=== PATIENT | female | born 1950 | race Caucasian/White ===

== ENCOUNTER 2018-07-31 13:53 | Inpatient (IN) | payer OTHER ==
--- NOTE | 2018-07-31 14:36 | ER ---
Nurse's Notes [facility] Name: Joanne Shields Age: 67 yrs Sex: Female : 1950 Arrival Date: 07/31/2018 Time: 13:58 Bed 5 Private MD: Corrina Robles R Diagnosis: Dyspnea;Unspecified combined systolic (congestive) and diastolic (congestive) heart failure;Essential (primary) hypertension;Edema, unspecified Presentation: 07/31 13:57 Presenting complaint: Patient states: i came from my documentation liaison and he sent me here hj in the ER: a couple of weeks ago, i started having this swollen legs and today i started having this SOB; reports chest pain, like somebody squeezing it;. Transition of care: patient was not received from another setting of care. Onset of symptoms was July 31, 2018. Risk Assessment: Do you want to hurt yourself or someone else? Patient reports no desire to harm self or others. Initial Sepsis Screen: Does the patient meet any 2 criteria? No. Patient's initial sepsis screen is negative. Does the patient have a suspected source of infection? No. Patient's initial sepsis screen is negative. Care prior to arrival: None. 13:57 Method Of Arrival: Ambulatory 13:57 Acuity: RAJNI 3 hj Historical: - Allergies: 14:00 tramadol; hj - Home Meds: 14:17 metoprolol tartrate 100 mg Oral tab 1 tab 2 times per day [Active]; diltiazem HCl 120 la1 mg Oral cp12 1 cap 2 times per day [Active]; Myrbetriq 25 mg oral Tb24 1 tab once daily [Active]; clonidine HCl 0.2 mg Oral tab 1 tab once daily [Active]; quinapril 40 mg Oral tab 1 tab 2 times per day [Active]; - PMHx: 14:00 CHF; Hypertension; hj - PSHx: 14:00 abdominal; Cholecystectomy; Hysterectomy; Hernia repair; hj - Immunization history:: Adult Immunizations up to date. - Social history:: Smoking status: Patient/guardian denies using tobacco. - Ebola Screening: : No symptoms or risks identified at this time. Screenin:39 Abuse screen: Denies threats or abuse. Nutritional screening: No deficits noted. la1 Tuberculosis screening: No symptoms or risk factors identified. Fall Risk None identified. Assessment: 14:38 General: Appears in no apparent distress. Behavior is calm, cooperative. Pain: Denies la1 pain. Neuro: Level of Consciousness is awake, alert, obeys commands, Oriented to person, place, time, situation. Cardiovascular: Heart tones S1 S2 present Capillary refill < 3 seconds Patient's skin is warm and dry. Edema pitting to left ankle, left foot, right ankle and right foot Rhythm is sinus rhythm. Respiratory: Airway is patent Respiratory effort is even, unlabored, Respiratory pattern is regular, symmetrical, Breath sounds are coarse bilaterally. GI: Abdomen is non-distended, obese. : No signs and/or symptoms were reported regarding the genitourinary system. 15:07 Reassessment: Patient appears in no apparent distress at this time. No changes from la1 previously documented assessment. Patient and/or family updated on plan of care and expected duration. Pain level reassessed. Patient is alert, oriented x 3, equal unlabored respirations, skin warm/dry/pink. Vital Signs: 14:00 BP 180 / 102; Pulse 50; Resp 20; Temp 98.8(O); Pulse Ox 95% on R/A; Weight 96.62 kg; hj Height 5 ft. 4 in. (162.56 cm); Pain 3/10; 15:08 BP 188 / 88; Pulse 46; Resp 16; Pulse Ox 93% on R/A; la1 14:00 Body Mass Index 36.56 (96.62 kg, 162.56 cm) ED Course: 13:58 Patient arrived in ED. mr 13:59 Corrina Robles MD is Private Physician. mr 13:59 Triage completed. hj 14:00 Arm band placed on right wrist. hj 14:08 Jay Lim RN is Primary Nurse. la1 14:14 Cuco Armenta MD is Attending Physician. manuel 14:34 Merced Ward MD is Hospitalizing Provider. manuel 14:39 Call light in reach. Side rails up X 1. alarm security or surveillance monitor on. Pulse ox on. NIBP on. la1 14:39 No provider procedures requiring assistance completed. Inserted saline lock: 22 gauge la1 in right antecubital area, using aseptic technique. Blood collected. 14:40 X-ray completed. Portable x-ray completed in exam room. Patient tolerated procedure jb2 well. 14:40 EKG done, by hydro plant technician. reviewed by Cuco Armenta MD. 3 14:43 XRAY Chest (1 view) In Process Unspecified. EDMI 15:29 Urine Culture Sent. 16:17 Patient admitted, IV remains in place. la1 Administered Medications: 15:21 Drug: Lasix 20 mg Route: IVP; Site: right antecubital; la1 16:17 Follow up: Response: incrased urine output, voided x 3 la1 Outcome: 14:35 Decision to Hospitalize by Provider. manuel 16:16 Admitted to Tele accompanied by tech, via wheelchair, room 411. la1 16:16 Condition: stable 16:16 Instructed on the need for admit. 16:17 Patient left the ED. la1 Signatures: Dispatcher [employer] EDMS Cuco Armenta MD MD cha Rivera, Alie Jamee Rushe jb2 Beryl Owens RN RN ss Attema, Lee, RN RN la1 Lyle Alvarez, Abena Moses RN sm3 Corrections: (The following items were deleted from the chart) 14:05 14:00 Pulse 50bpm; Resp 20bpm; Pulse Ox 95% RA; Temp 98.8F Oral; 96.62 kg; Height 5 ft. hj 4 in.; BMI: 36.5; Pain 3/10; hj 14:07 14:00 Pulse 50bpm; Resp 20bpm; Pulse Ox 95% RA; Temp 98.8F Oral; 96.62 kg; Height 5 ft. hj 4 in.; BMI: 36.5; Pain 3/10; hj 14:42 13:57 Presenting complaint: Patient states: i came from documentation liaison and he sent me hj here in the ER: a couple of weeks ago, i started having this swollen legs and today i started having this SOB; reports chest pain, like somebody squeezing it; hj
--- NOTE | 2018-07-31 14:36 | EDPHYS ---
Physician Documentation [facility] Name: Joanne Shields Age: 67 yrs Sex: Female : 1950 Arrival Date: 07/31/2018 Time: 13:58 Bed 5 Private MD: Corrina Robles R ED Physician Cuco Armenta HPI: 07/31 14:22 This 67 yrs old Female presents to ER via Ambulatory with complaints of manuel Breathing Difficulty. 14:22 The patient has shortness of breath at rest, with light activity. Onset: The manuel symptoms/episode began/occurred this morning, yesterday. Duration: The symptoms are continuous, and are steadily getting worse. The patient's shortness of breath is aggravated by supine position, walking. Associated signs and symptoms: Pertinent positives: non-productive cough. Severity of symptoms: At their worst the symptoms were. The patient has not experienced similar symptoms in the past. Historical: - Allergies: 14:00 tramadol; hj - Home Meds: 14:17 metoprolol tartrate 100 mg Oral tab 1 tab 2 times per day [Active]; diltiazem HCl 120 la1 mg Oral cp12 1 cap 2 times per day [Active]; Myrbetriq 25 mg oral Tb24 1 tab once daily [Active]; clonidine HCl 0.2 mg Oral tab 1 tab once daily [Active]; quinapril 40 mg Oral tab 1 tab 2 times per day [Active]; - PMHx: 14:00 CHF; Hypertension; hj - PSHx: 14:00 abdominal; Cholecystectomy; Hysterectomy; Hernia repair; hj - Immunization history:: Adult Immunizations up to date. - Social history:: Smoking status: Patient/guardian denies using tobacco. - Ebola Screening: : No symptoms or risks identified at this time. ROS: 14:27 Constitutional: Negative for fever, chills, and weight loss, Eyes: Negative for injury, manuel pain, redness, and discharge, ENT: Negative for injury, pain, and discharge, Neck: Negative for injury, pain, and swelling, Cardiovascular: Negative for chest pain, palpitations, and edema, Abdomen/GI: Negative for abdominal pain, nausea, vomiting, diarrhea, and constipation, Back: Negative for injury and pain, : Negative for injury, bleeding, discharge, and swelling, MS/Extremity: Negative for injury and deformity, Skin: Negative for injury, rash, and discoloration, Neuro: Negative for headache, weakness, numbness, tingling, and seizure, Psych: Negative for depression, anxiety, suicide ideation, homicidal ideation, and hallucinations, Allergy/Immunology: Negative for hives, rash, and allergies, Endocrine: Negative for neck swelling, polydipsia, polyuria, polyphagia, and marked weight changes, Hematologic/Lymphatic: Negative for swollen nodes, abnormal bleeding, and unusual bruising. 14:27 Respiratory: Positive for cough, shortness of breath, at rest. 14:27 MS/extremity: Positive for swelling, of the right leg and left leg. Exam: 14:27 Constitutional: This is a well developed, well nourished patient who is awake, alert, manuel and in no acute distress. Head/Face: Normocephalic, atraumatic. Eyes: Pupils equal round and reactive to light, extra-ocular motions intact. Lids and lashes normal. Conjunctiva and sclera are non-icteric and not injected. Cornea within normal limits. Periorbital areas with no swelling, redness, or edema. ENT: Nares patent. No nasal discharge, no septal abnormalities noted. Tympanic membranes are normal and external auditory canals are clear. Oropharynx with no redness, swelling, or masses, exudates, or evidence of obstruction, uvula midline. Mucous membranes moist. Neck: Trachea midline, no thyromegaly or masses palpated, and no cervical lymphadenopathy. Supple, full range of motion without nuchal rigidity, or vertebral point tenderness. No Meningismus. Chest/axilla: Normal chest wall appearance and motion. Nontender with no deformity. No lesions are appreciated. Cardiovascular: Regular rate and rhythm with a normal S1 and S2. No gallops, murmurs, or rubs. Normal PMI, no JVD. No pulse deficits. Respiratory: Lungs have equal breath sounds bilaterally, clear to auscultation and percussion. No rales, rhonchi or wheezes noted. No increased work of breathing, no retractions or nasal flaring. Abdomen/GI: Soft, non-tender, with normal bowel sounds. No distension or tympany. No guarding or rebound. No evidence of tenderness throughout. Back: No spinal tenderness. No costovertebral tenderness. Full range of motion. Skin: Warm, dry with normal turgor. Normal color with no rashes, no lesions, and no evidence of cellulitis. Neuro: Awake and alert, GCS 15, oriented to person, place, time, and situation. Cranial nerves II-XII grossly intact. Motor strength 5/5 in all extremities. Sensory grossly intact. Cerebellar exam normal. Normal gait. Psych: Awake, alert, with orientation to person, place and time. Behavior, mood, and affect are within normal limits. 14:27 Cardiovascular: Rate: normal, Rhythm: regular, Pulses: Pulses are 4+ in bilateral radial, brachial, femoral, popliteal, posterior tibial and and dorsalis pedis arteries.. Heart sounds: murmur, systolic, grade 2 over 6, rub, not appreciated, gallop, not appreciated, S1, normal, S2, normal, JVD: is noted bilaterally, to 1 cm. Vital Signs: 14:00 BP 180 / 102; Pulse 50; Resp 20; Temp 98.8(O); Pulse Ox 95% on R/A; Weight 96.62 kg; hj Height 5 ft. 4 in. (162.56 cm); Pain 3/10; 15:08 BP 188 / 88; Pulse 46; Resp 16; Pulse Ox 93% on R/A; la1 14:00 Body Mass Index 36.56 (96.62 kg, 162.56 cm) MDM: 14:17 Patient medically screened. [facility] 14:29 Data reviewed: vital signs, nurses notes, lab test result(s), EKG, radiologic studies, [facility] plain films. 07/31 14:22 Order name: Basic Metabolic Panel; Complete Time: 15:26 [facility] 07/31 14:22 Order name: CBC with Diff; Complete Time: 15:26 [facility] 07/31 14:22 Order name: LFT's; Complete Time: 15:26 [facility] 07/31 14:22 Order name: Magnesium; Complete Time: 15:26 [facility] 07/31 14:22 Order name: NT PRO-BNP; Complete Time: 15:26 [facility] 07/31 14:22 Order name: PT-INR; Complete Time: 15:26 [facility] 07/31 14:22 Order name: Troponin (emerg Dept Use Only); Complete Time: 15:26 [facility] 07/31 14:22 Order name: XRAY Chest (1 view); Complete Time: 15:26 [facility] 07/31 14:22 Order name: Echo w/ Doppler [facility] 07/31 14:22 Order name: Urine Culture [facility] 07/31 14:22 Order name: Lipase; Complete Time: 16:10 [facility] 07/31 15:48 Order name: Urine Dipstick--Ancillary (enter results) 07/31 16:10 Order name: US Extremity Venous W Compression Shine [facility] 07/31 14:22 Order name: EKG; Complete Time: 14:26 [facility] 07/31 14:22 Order name: Cardiac monitoring; Complete Time: 14:52 [facility] 07/31 14:22 Order name: EKG - Nurse/Tech; Complete Time: 14:33 [facility] 07/31 14:22 Order name: IV Saline Lock; Complete Time: 14:33 [facility] 07/31 14:22 Order name: Labs collected and sent; Complete Time: 14:33 [facility] 07/31 14:22 Order name: O2 Per Protocol; Complete Time: 14:33 [facility] 07/31 14:22 Order name: O2 Sat Monitoring; Complete Time: 14:33 [facility] 07/31 14:22 Order name: Urine Dipstick-Ancillary (obtain specimen); Complete Time: 15:29 [facility] 07/31 14:47 Order name: CONS Physician Consult EDMS Administered Medications: 15:21 Drug: Lasix 20 mg Route: IVP; Site: right antecubital; la1 16:17 Follow up: Response: incrased urine output, voided x 3 la1 Disposition: 07/31/18 14:35 Hospitalization ordered by Merced Ward for Inpatient Admission. Preliminary diagnosis are Dyspnea, Unspecified combined systolic (congestive) and diastolic (congestive) heart failure, Essential (primary) hypertension, Edema, unspecified. - Bed requested for Telemetry/MedSurg (Inpatient). - Status is Inpatient Admission. la1 - Condition is Fair. - Problem is new. - Symptoms have improved. UTI on Admission? No Signatures: Dispatcher [employer] EDMS Apurva Zuniga RN RN dw Anderson, Corey, MD MD cha Attema, Lee RN RN la1 Lyle Alvarez RN RN Corrections: (The following items were deleted from the chart) 15:00 14:35 Hospitalization Ordered by Merced Ward MD for Inpatient Admission. Preliminary amauri diagnosis is Dyspnea; Unspecified combined systolic (congestive) and diastolic (congestive) heart failure; Essential (primary) hypertension; Edema, unspecified. Bed requested for Telemetry/MedSurg (Inpatient). Status is Inpatient Admission. Condition is Fair. Problem is new. Symptoms have improved. UTI on Admission? No. manuel 16:17 15:00 07/31/2018 14:35 Hospitalization Ordered by Merced Ward MD for Inpatient la1 Admission. Preliminary diagnosis is Dyspnea; Unspecified combined systolic (congestive) and diastolic (congestive) heart failure; Essential (primary) hypertension; Edema, unspecified. Bed requested for Telemetry/MedSurg (Inpatient). Status is Inpatient Admission. Condition is Fair. Problem is new. Symptoms have improved. UTI on Admission? No. dw
[2018-07-31] MEDS ORDERED: FUROSEMIDE 20 MG/ 2ML VIAL ONE (14:52)
[2018-07-31 14:58] LABS: Absolute Lymphocytes (CBC) 1.2 K/uL (0.7-4.9); Basophils % 0.5 % (0-1.3); Eosinophils % 4.8 % (0-4.4); Hematocrit 44.9 % (36.0-45.0); Lymphocytes % 22.8 % (15.3-44.8); MPV 8.9 fL (7.6-11.3); Monocytes % 16.8 % (3.3-12.3); RBC Red Blood Cell Count 5.05 M/uL (3.86-4.86)
[2018-07-31 15:01] LABS: Protime INR 1.06
--- NOTE | 2018-07-31 15:02 | RAD REPORT ---
EXAM DESCRIPTION: RAD - Chest Single View - 07/31/2018 2:46 pm CLINICAL HISTORY: Chest pain, shortness of breath COMPARISON: April 2012 TECHNIQUE: AP portable chest image was obtained [id number] . FINDINGS: Or is baseline fibrotic lung pattern is present. Interstitial pattern is not substantially different from comparison. No acute infiltrate, mass or failure finding. A few small calcified granu aj are seen. Heart size is upper normal but not substantially different. No acute vascular engorgement. No measur able pleural effusion and no pneumothorax. No acute bone finding. Prominent bilateral shoulder joint degenerative changes are present progressive from 2013. No acute aortic findings suspected. IMPRESSION: No acute cardiopulmonary process. Heart size is upper normal without acute failure or volume overload suspected. Significant bilateral shoulder joint degenerative change progressive from comparison.
[2018-07-31 15:14] LABS: ALT/SGPT 20 U/L (12-78); AST/SGOT 18 U/L (15-37); Albumin 3.5 g/dL (3.4-5.0); Alkaline Phosphatase 103 U/L (45-117); BUN Blood Urea Nitrogen 11 mg/dL (7-18); Bicarbonate 30 mmol/L (21-32); Bilirubin Direct < 0.1 mg/dL (0-0.2); Bilirubin Total 0.4 mg/dL (0.2-1.0); Glucose Level 99 mg/dL (74-106); Magnesium 1.9 mg/dL (1.8-2.4); NT PRO-BNP 2545 pg/mL (<125); Potassium 3.7 mmol/L (3.5-5.1); Protein, Total 7.4 g/dL (6.4-8.2); Sodium Level 142 mmol/L (136-145); Troponin (Emerg Dept Use Only) < 0.02 ng/mL (0.0-0.045)
[2018-07-31 16:18] LABS: Urine Blood TRACE (NEG); Urine Glucose NEGATIVE (NEG); Urine Protein 2+ (NEG); Urine pH 8.5 (5.0-7.0)
--- NOTE | 2018-07-31 16:28 | EKG ---
Test Date: 2018-07-31 Test Time: 14:34:46 Floors Buffer: [id number] MEASUREMENT RESULTS: Intervals: Rate: 47 UT: 226 QRSD: 84 QT: 514 QTc: 454 [place]: P: 62 UT: 226 QRS: 25 T: 81 INTERPRETIVE STATEMENTS: Marked sinus bradycardia with sinus arrhythmia with 1st degree AV block Nonspecific T wave abnormality Abnormal ECG Compared to ECG 07/26/2012 13:31:56 T-wave abnormality now present Electronically Signed On 07-31-18 16:27:14 CDT by Pedro Paniagua
--- NOTE | 2018-07-31 16:40 | P.HP ---
Certification for Inpatient Patient admitted to: Observation With expected LOS: <2 Midnights Patient will require the following post-hospital care: None Practitioner: I am a practitioner with admitting privileges, knowledge of patient current condition, hospital course, and medical plan of care. Services: Services provided to patient in accordance with Admission requirements found in Title 42 Section 412.3 of the Code of Federal Regulations Patient History Date of Service: 07/31/18 Primary Care Provider: Dr Jonhson Reason for admission: SOB and BL LE Swelling History of Present Illness: This is a 67-year-old female with significant past medical history of high blood pressure and morbid obesity who presented to the ED complaining of having bilateral lower extremity edema. Patient stated that she recently went to her cardiology's office this morning and was told that she needs to come to the hospital to be admitted for CHF exacerbation due to bilateral lower extremity edema. Patient stated that she has also been having some shortness of breath for past couple of weeks which has gotten progressively worse and has been unable to lay flat at night time. Patient has been sleeping on a recliner and has been having difficulty walking without getting short of breath for couple of steps. Patient also states that she has noted her leg swelling has gotten worse over the past month and she is unable to bear weight on it due to pain due to the swelling. Patient denies having any fever chills nausea vomiting abdominal pain or any other associated symptoms at this time. In the ER patient was seen and evaluated. Lab work and imaging was done. Patient's lab work was consistent with elevated BNP along with physical examination that was consistent with CHF exacerbation and thus patient was referred for admission. Allergies No Known Allergies Allergy (Unverified 07/30/12 15:42) Home Medications: Atenolol [Tenormin*] 50 mg PO DAILY 07/30/12 Diltiazem Tab [Cardizem Tab*] 120 mg PO BID 07/30/12 Furosemide [Lasix*] 20 mg PO Q3D 07/30/12 Oxybutynin Chloride [Ditropan*] 5 mg PO BID 07/30/12 Quinapril HCl [Accupril] 40 mg PO BID 07/30/12 Telmisartan [Micardis] 40 mg PO DAILY 07/30/12 cloNIDine HCl [Catapres*] 0.2 mg PO TID 07/30/12 Hydrocodone Bit/Acetaminophen [W[place] 10-325 Tablet] 1 each PO Q4HP PRN #30 tablet 07/31/12 Promethazine Tab [Phenergan -Tab] 25 mg PO Q6HP PRN #10 tab 07/31/12 Smz./Tmp. [Bactrim Ds 800 MG/160 MG*] 1 tab PO BID #12 tab 07/31/12 - Past Medical/Surgical History Has patient received pneumonia vaccine in the past: No Diabetic: No -: Abdominal Tumors -: anxiety -: HTN -: Gall bladder -: Hernia repair -: hysterectomy -: back sx - Family History Family History: Reviewed- Non-Contributory - Social History Smoking Status: Former smoker Counseled patient to stop smoking for: more than 10 minutes Smoking therapy provided: Yes Patient receptive to therapy: Yes Alcohol use: No CD- Drugs: No Caffeine use: No Place of Residence: Home Review of Systems 10-point ROS is otherwise unremarkable Physical Examination - Physical Exam General: Alert, In no apparent distress Neck: JVD distended Respiratory: Normal air movement, Crackles/rales Cardiovascular: Regular rate/rhythm, Normal S1 S2, Edema (2+ Edema BL LE ) Gastrointestinal: Normal bowel sounds, No tenderness Musculoskeletal: Swelling (2+ Edema BL LE ) Integumentary: No rashes Neurological: Normal speech, Normal strength at 5/5 x4 extr, Normal tone Lymphatics: No axilla or inguinal lymphadenopathy - Studies Laboratory Data (last 24 hrs) 07/31/18 14:30: Lipase 111 07/31/18 14:30: PT 12.5, INR 1.06 07/31/18 14:30: WBC 5.2, Hgb 14.6, Hct 44.9, Plt Count 198 07/31/18 14:30: Sodium 142, Potassium 3.7, BUN 11, Creatinine 0.61, Glucose 99, Magnesium 1.9, Total Bilirubin 0.4, AST 18, ALT 20, Alkaline Phosphatase 103 Assessment and Plan - Problems (Diagnosis) (1) CHF (congestive heart failure) Current Visit: Yes Status: Acute Plan: Acute CHF exacerbation with bilateral 2+ pedal edema shortness of breath crackles on physical exam and orthopnea -IV Lasix 40 mg b.i.d. -cardiology consulted. Awaiting recommendation -echocardiogram pending at this time as well -fluid restriction, sodium restriction and strict intake and output Qualifiers: Heart failure type: systolic Heart failure chronicity: acute Qualified Code(s): I50.21 - Acute systolic (congestive) heart failure (2) HTN (hypertension) Current Visit: Yes Status: Chronic Plan: Will restart home medication at this time Qualifiers: Hypertension type: essential hypertension Qualified Code(s): I10 - Essential (primary) hypertension (3) Morbid obesity Current Visit: No Status: Chronic Plan: Educated extensively regarding diet and exercise and the need for low-sodium diet along with low glucose diet as well - Plan Admit patient to medical-surgical floor for new onset CHF with bilateral pedal edema along with crackles on physical exam and orthopnea will start patient on IV Lasix here in the hospital and get echocardiogram along with cardiology consult. Discharge Plan: Home Plan to discharge in: 48 Hours - Advance Directives Does patient have a Living Will: No Does patient have a Durable POA for Healthcare: No - Code Status/Comfort Care Code Status Assessed: Yes Critical Care: No
[2018-07-31] MEDS: INSULIN -REGULAR HUMAN 50 UNIT/0.5 ML ML SQ SCH ×2 (17:21→20:47)
[2018-07-31] MEDS ORDERED: D50W 25 GM/50 ML SYRINGE IV PRN (17:30)
[2018-07-31] MEDS ORDERED: GLUCAGON 1 MG/VIAL IM PRN (17:30)
[2018-07-31 17:42] VITALS: BMI 36.6
[2018-07-31] MEDS: FUROSEMIDE 40 MG/4 ML VIAL IV SCH (17:50)
[2018-07-31] MEDS: ENOXAPARIN 40 MG/0.4 ML SQ SCH (18:50)
--- NOTE | 2018-07-31 19:49 | RAD REPORT ---
EXAM DESCRIPTION: US - Extrem Venous W Compress Shine - 07/31/2018 7:43 pm CLINICAL HISTORY: Pain;Swelling Bilateral leg edema and swelling. COMPARISON: <Comparisons> TECHNIQUE: Real-time sonographic interrogation of the left and right lower extremity deep venous sys tems was performed. FINDINGS: Normal compressibility, flow augmentation, phasic flow and spontaneous flow is identified in both the left and right lower extremity deep venous systems. IMPRESSION: No sonographic evidence of left or right lower extremity deep venous thrombosis.
--- NOTE | 2018-07-31 20:40 | CON ---
Date of Consultation: 07/31/2018 Reason For Consultation: Congestive heart failure. History Of Present Illness: Cornelius is a 67-year-old. She is a patient of Dr. Robles in [place] and was sent to Dr. Chacon today for cardiac evaluation in his office but he thought that she was in congestive heart failure and he sent her to the emergency room for evaluation where she was admitted . The patient has been complaining of PND, orthopnea, pedal edema for 2 weeks, but especially in the last week or two. She denies previous coronary artery disease or stroke or diabetes or dyslipidemia . Has had a history of hypertension. The chart said that she has had CHF in the past, but she denie d that. She denies any fever or chills or cough. Denied any nausea, vomiting, diaphoresis. She den ied any palpitation or syncope. Past Medical History: Includes hypertension. Allergies: NONE. Review of Systems: Negative. Social History: Negative. Family History: Noncontributory. Medications: At home included Tenormin, diltiazem, Micardis, Catapres, Accupril, Lasix, and Ditropan . Physical Examination: General: She was pleasant. O2 saturations were adequate. She was bradycardic. Normal blood pressu re. HEENT: Negative. Neck: Supple without any bruit, lymphadenopathy, JVD, or thyromegaly. Chest: Actually clear to auscultation and percussion. Cardiac exam: Revealed a regular rhythm and rate with a 2/6 systolic ejection murmur at the third le ft intercostal space that did not radiate. She had an S4 gallops. Abdomen: Obese. Extremities: Revealed 3+ edema. Diagnostic Data: Chest x-ray was normal. EKG showed sinus bradycardia. Her BNP shows it was 2545. Normal creatinine, normal troponin. Echocardiogram, which was done in the emergency room showed an ejection fraction of 55%. She had an LVH, diastolic dysfunction. Impression And Plan: 1.Acute diastolic congestive heart failure. 2.Hypertension. 3.Bradycardia. I think Ms. Shields's medication that may have to be changed. She may do better with a regimen such as carvedilol, Lasix as well as an REGINE inhibitor. I will discuss the case further with Dr. Chacon and Dr. Ward. It may be landrum to do a stress test on her eventually probably as an outpatient to rule ou t coronary artery disease. For now, we will diurese her with IV Lasix while watching her renal funct ion and electrolytes and weight. No further cardiac workup at this point. LALI/TRAVIS Voice ID: [id number] Report ID: [id number]
[2018-07-31] MEDS: HYDRALAZINE HCL 20 MG/ML VIAL IV PRN (20:46)
[2018-07-31] MEDS ORDERED: POTASSIUM CL SA 10 MEQ TAB PO ONE (21:00)
[2018-07-31] MEDS: NITROGLYCERIN 1 GM PKT TD SCH (23:04)
[2018-08-01] MEDS ORDERED: AMLODIPINE 5 MG TAB PO ONE (00:39)
[2018-08-01] MEDS: HYDRALAZINE HCL 20 MG/ML VIAL IV PRN (03:33)
[2018-08-01] MEDS: ONDANSETRON 4 MG/2 ML VIAL IV PRN (04:29)
[2018-08-01] MEDS: NITROGLYCERIN 1 GM PKT TD SCH (05:22)
[2018-08-01] MEDS: METOPROLOL TAR 50 MG TAB PO SCH ×2 (05:31→16:19)
[2018-08-01 06:13] LABS: Absolute Lymphocytes (CBC) 1.4 K/uL (0.7-4.9); Basophils % 0.5 % (0-1.3); Eosinophils % 2.9 % (0-4.4); Hematocrit 44.3 % (36.0-45.0); Lymphocytes % 20.6 % (15.3-44.8); MPV 9.2 fL (7.6-11.3); Monocytes % 17.9 % (3.3-12.3); RBC Red Blood Cell Count 5.08 M/uL (3.86-4.86)
[2018-08-01 06:34] LABS: Albumin 3.5 g/dL (3.4-5.0); Bilirubin Total 0.5 mg/dL (0.2-1.0); Potassium 3.3 mmol/L (3.5-5.1); Protein, Total 7.4 g/dL (6.4-8.2)
[2018-08-01] MEDS: INSULIN -REGULAR HUMAN 50 UNIT/0.5 ML ML SQ SCH (07:30)
--- NOTE | 2018-08-01 07:47 | ECHO ---
HEIGHT: 5 ft 4 in WEIGHT: 206 lb 9.6 oz DATE OF STUDY: 07/31/[address]: Cuco Armenta MD 2-DIMENSIONAL: YES M.MODE: YES DOPPLER: YES COLOR FLOW: YES TDS: NO PORTABLE: NO DEFINITY: NO BUBBLE STUDY: NO DIAGNOSIS: CONGESTIVE HEART FAILURE CARDIAC HISTORY: CATHERIZATION: NO SURGERY: NO PROSTHETIC VALVE: NO PACEMAKER: NO MEASUREMENTS (cm) DIASTOLIC (NORMALS) SYSTOLIC (NORMALS) IVSd 1.2 (0.6-1.2) LA Diam (1.9-4.0) LVEF 55% LVIDd 5.4 (3.5-5.7) LVIDs 3.8 (2.0-3.5) %FS 29% LVPWd 1.4 (0.6-1.2) Ao Diam 3.3 (2.0-3.7) 2 DIMENSIONAL ASSESSMENT: RIGHT ATRIUM: NORMAL LEFT ATRIUM: NORMAL RIGHT VENTRICLE: NORMAL LEFT VENTRICLE: LEFT VENTRICULAR HYPERTROPHY TRICUSPID VALVE: NORMAL MITRAL VALVE: NORMAL PULMONIC VALVE: NORMAL AORTIC VALVE: SCLEROTIC PERICARDIAL EFFUSION: NONE AORTIC ROOT: NORMAL LEFT VENTRICULAR WALL MOTION: NORMAL EJECTION FRACTION. DECREASED LEFT VENTRICULAR COMPLIANCE DOPPLER/COLOR FLOW: MILD AORTIC AND TRICUSPID REGURGITATION. COMMENTS: NORMAL LEFT VENTRICULAR EJECTION FRACTION. DECREASED LEFT VENTRICULAR COMPLIANCE. MILD AORTIC AND TRICUSPID REGURGITATION. AORTIC SCLEROSIS WITH NO STENOSIS. LEFT VENTRICULAR HYPERTROPHY-MILD CONENTRICE TECHNOLOGIST: ELKE ALBRECHT
--- NOTE | 2018-08-01 07:50 | PN ---
Ms. Shields has lost 7 pounds of extracellular fluid. She has a headache, no doubt from the nitroglyce rin paste. I do not think nitroglycerin paste has any role to play here. I will discontinue it. We will give her some Tylenol for her headache. She needs to have better control of her blood pressure , more diuresis. Her echocardiogram shows normal ejection fraction, diastolic dysfunction. The marry ent needs to learn about congestive heart failure therapy with sodium restriction, daily weights. DANY/TRAVIS Voice ID: [id number] Report ID: [id number]
[2018-08-01] MEDS: ACETAMINOPHEN 500 MG TAB PO PRN ×3 (08:03→20:48)
[2018-08-01] MEDS: ENOXAPARIN 40 MG/0.4 ML SQ SCH (08:04)
[2018-08-01] MEDS: VALSARTAN 80 MG TAB PO SCH (08:04)
[2018-08-01] MEDS: FUROSEMIDE 40 MG/4 ML VIAL IV SCH ×2 (08:05→16:20)
[2018-08-01] MEDS: AMLODIPINE 5 MG TAB PO SCH (08:24)
[2018-08-01 08:55] LABS: Blood Morphology Comment NOT SEEN (NOT SEEN); Platelet Estimate ADEQ
[2018-08-01] MEDS ORDERED: HOME MED 1 EA UNK (Metoprolol Tartrate [Lopressor] 100 MG) PO SCH (09:00)
[2018-08-01] MEDS ORDERED: POTASSIUM 25 MEQ EFFERV TAB PO ONE (09:00)
--- NOTE | 2018-08-01 10:53 | P.PN ---
Subjective Date of Service: 08/01/18 Primary Care Provider: Dr Johnson Chief Complaint: SOB and BL LE Swelling Patient seen and examined at bedside with RN. Chart reviewed. Case discussed with cardiology at this time. Patient has lost over 7 lb yesterday after being started on IV Lasix. This morning feels much better than before. Able to lay flat at this time. Still continues to have orthopnea along with bilateral lower extremity swelling. Review of Systems 10-point ROS is otherwise unremarkable Physical Examination - Vital Signs Temperature: 97.9 F Blood Pressure: 148/74 Pulse: 74 Respirations: 18 Pulse Ox (%): 95 - Physical Exam General: Alert, In no apparent distress Neck: JVD distended Respiratory: Normal air movement, Crackles/rales Cardiovascular: Regular rate/rhythm, Normal S1 S2 Gastrointestinal: Normal bowel sounds, No tenderness Musculoskeletal: No tenderness, Swelling (2+ bilateral lower extremity pedal edema) Integumentary: No rashes Neurological: Normal speech, Normal tone, Normal affect Lymphatics: No axilla or inguinal lymphadenopathy - Studies Laboratory Data (last 24 hrs) 07/31/18 14:30: Lipase 111 07/31/18 14:30: PT 12.5, INR 1.06 07/31/18 14:30: WBC 5.2, Hgb 14.6, Hct 44.9, Plt Count 198 07/31/18 14:30: Sodium 142, Potassium 3.7, BUN 11, Creatinine 0.61, Glucose 99, Magnesium 1.9, Total Bilirubin 0.4, AST 18, ALT 20, Alkaline Phosphatase 103 Medications List Reviewed: Yes Assessment And Plan - Current Problems (Diagnosis) (1) CHF (congestive heart failure) Current Visit: Yes Status: Acute Plan: Acute diastolic CHF exacerbation with bilateral 2+ pedal edema shortness of breath crackles on physical exam and orthopnea -IV Lasix 40 mg b.i.d. -cardiology consulted. Recommendations appreciated at this time -echocardiogram consistent with ejection fraction of 55% with low left ventricular compliance consistent with diastolic dysfunction -fluid restriction, sodium restriction and strict intake and output Qualifiers: Heart failure type: diastolic Heart failure chronicity: acute Qualified Code(s): I50.31 - Acute diastolic (congestive) heart failure (2) HTN (hypertension) Current Visit: Yes Status: Chronic Plan: Blood pressure is on the elevated side at this time -this hold clonidine along with Cardizem at this time -started on amlodipine and Diovan by cardiology -also on IV Lasix at this time -will monitor close Qualifiers: Hypertension type: essential hypertension Qualified Code(s): I10 - Essential (primary) hypertension (3) Morbid obesity Current Visit: No Status: Chronic Plan: Educated extensively regarding diet and exercise and the need for low-sodium diet along with low glucose diet as well - Plan Pending clinical improvement at this time. Will continue with IV Lasix at this time. Monitor patient for next 24-48 hr for any improvement. Discharge Plan: Home Plan to discharge in: 48 Hours - Code Status/Comfort Care Code Status Assessed: Yes Critical Care: No
[2018-08-01 16:09] VITALS: O2SAT 92
[2018-08-01] MEDS ORDERED: POTASSIUM CL SA 10 MEQ TAB PO ONE (17:00)
[2018-08-02] MEDS: ACETAMINOPHEN 500 MG TAB PO PRN ×3 (00:47→17:52)
[2018-08-02] MEDS: HYDRALAZINE HCL 20 MG/ML VIAL IV PRN ×2 (05:07→20:01)
[2018-08-02] MEDS: ONDANSETRON 4 MG/2 ML VIAL IV PRN ×2 (05:49→17:50)
[2018-08-02] MEDS: METOPROLOL TAR 50 MG TAB PO SCH ×2 (05:49→17:52)
[2018-08-02 06:09] LABS: Absolute Lymphocytes (CBC) 1.6 K/uL (0.7-4.9); Basophils % 0.5 % (0-1.3); Eosinophils % 2.1 % (0-4.4); Hematocrit 44.2 % (36.0-45.0); Lymphocytes % 29.7 % (15.3-44.8); MPV 8.7 fL (7.6-11.3); Monocytes % 16.6 % (3.3-12.3)
[2018-08-02 06:34] LABS: Albumin 3.3 g/dL (3.4-5.0); Bilirubin Total 0.4 mg/dL (0.2-1.0); Potassium 3.7 mmol/L (3.5-5.1)
[2018-08-02] MEDS: ENOXAPARIN 40 MG/0.4 ML SQ SCH (09:00)
[2018-08-02] MEDS: AMLODIPINE 5 MG TAB PO SCH (09:00)
[2018-08-02] MEDS ORDERED: POTASSIUM CL SA 10 MEQ TAB PO ONE (09:00)
[2018-08-02] MEDS: FUROSEMIDE 40 MG/4 ML VIAL IV SCH (09:00)
--- NOTE | 2018-08-02 11:03 | P.PN ---
Subjective Date of Service: 08/02/18 Primary Care Provider: Dr Johnson Chief Complaint: SOB and BL LE Swelling Patient seen and examined at bedside with RN. Chart reviewed. Case discussed with cardiology at this time. Patient complains of having some nausea this morning along with left lower leg cramping. Overall however patient has lost over 10 lb over the last 48 hr. This morning patient's blood pressure was a little elevated and she does complain of having some headache with that. Review of Systems 10-point ROS is otherwise unremarkable Physical Examination - Vital Signs Temperature: 97.7 F Blood Pressure: 156/98 Pulse: 72 Respirations: 24 Pulse Ox (%): 92 - Physical Exam General: Alert, In no apparent distress, Obese HEENT: Atraumatic, PERRLA, EOMI Neck: Supple, JVD not distended Respiratory: Normal air movement, Crackles/rales Cardiovascular: Regular rate/rhythm, Normal S1 S2 Gastrointestinal: Normal bowel sounds, No tenderness Musculoskeletal: No tenderness, Swelling (1+ pedal [place]) Integumentary: No rashes Neurological: Normal speech, Normal tone, Normal affect Lymphatics: No axilla or inguinal lymphadenopathy - Studies Medications List Reviewed: Yes Assessment And Plan - Current Problems (Diagnosis) (1) CHF (congestive heart failure) Current Visit: Yes Status: Acute Plan: Acute diastolic CHF exacerbation with bilateral 2+ pedal edema shortness of breath crackles on physical exam and orthopnea. Much improved today -was switched to p.o. Lasix 40 b.i.d. at this time -cardiology consulted. Recommendations appreciated at this time -echocardiogram consistent with ejection fraction of 55% with low left ventricular compliance consistent with diastolic dysfunction -fluid restriction, sodium restriction and strict intake and output Qualifiers: Heart failure type: diastolic Heart failure chronicity: acute Qualified Code(s): I50.31 - Acute diastolic (congestive) heart failure (2) HTN (hypertension) Current Visit: Yes Status: Chronic Plan: Blood pressure was on the elevated side this morning. Responded well with metoprolol Lasix and losartan this morning -restarted back on metoprolol and clonidine which are home medication -will continue with valsartan and Lasix as well -Dc Cardizem home medication Qualifiers: Hypertension type: essential hypertension Qualified Code(s): I10 - Essential (primary) hypertension (3) Morbid obesity Current Visit: No Status: Chronic Plan: Educated extensively regarding diet and exercise and the need for low-sodium diet along with low glucose diet as well - Plan Pending clinical improvement at this time. Patient now switched to p.o. Lasix at this time. Will monitor for next 24-48 hr. If patient continues to improve that patient can be discharged home at that time. Discharge Plan: Home Plan to discharge in: 48 Hours - Code Status/Comfort Care Code Status Assessed: Yes Critical Care: No
--- NOTE | 2018-08-02 12:45 | PN ---
Date of Progress Note: 08/02/2018 Ms. Shields was admitted about 48 hours ago with acute diastolic congestive heart failure. She has los t about 10 pounds since she has been here. Her leg edema has much improved. Her breathing is much i mproved. She continues to have some nausea, probably related to some of the medication. I suggest gee bello will give her some antiemetic medication. Probably switch her to p.o. Lasix, ambulate her, and she can go home if it is okay with Dr. Ward, would like to see her in the office in the next 2 weeks. She will probably need to have an outpatient stress test eventually. LALI/TRAVIS Voice ID: [id number] Report ID: [id number]
[2018-08-02 13:02] LABS: Arterial Blood Carboxyhemoglob 1.5 % (0-1.5); Blood Gas Oxyhemoglobin 87.6 % (94-97); Blood O2 Saturation 89.5 % (92-98.5)
[2018-08-02] MEDS: VALSARTAN 80 MG TAB PO SCH (13:58)
[2018-08-02] MEDS: FUROSEMIDE 40 MG TABLET PO SCH (15:51)
[2018-08-03] MEDS: cloNIDine HCl 0.1 MG TAB PO SCH ×2 (01:09→09:19)
[2018-08-03] MEDS: ACETAMINOPHEN 500 MG TAB PO PRN ×2 (01:09→09:19)
[2018-08-03 06:39] LABS: Absolute Lymphocytes (CBC) 1.6 K/uL (0.7-4.9); Basophils % 0.9 % (0-1.3); Eosinophils % 1.6 % (0-4.4); Hematocrit 44.2 % (36.0-45.0); Lymphocytes % 28.9 % (15.3-44.8); MPV 8.6 fL (7.6-11.3); Monocytes % 17.8 % (3.3-12.3); RBC Red Blood Cell Count 4.99 M/uL (3.86-4.86)
[2018-08-03 07:00] LABS: Albumin 3.4 g/dL (3.4-5.0); Bilirubin Total 0.4 mg/dL (0.2-1.0); Potassium 3.5 mmol/L (3.5-5.1)
[2018-08-03] MEDS: FUROSEMIDE 40 MG TABLET PO SCH (09:19)
[2018-08-03] MEDS: VALSARTAN 80 MG TAB PO SCH (09:20)
[2018-08-03] MEDS: ENOXAPARIN 40 MG/0.4 ML SQ SCH (09:20)
[2018-08-03] MEDS: METOPROLOL TAR 50 MG TAB PO SCH (09:23)
--- NOTE | 2018-08-03 11:34 | P.DS ---
Admission Date: 08/01/18 Discharge Date: 08/03/18 Primary Care Provider: Dr Johnson Disposition: ROUTINE DISCHARGE Discharge Condition: FAIR Reason for Admission: SOB and BL LE Swelling Consultations: Cardiology - Problems (1) CHF (congestive heart failure) Current Visit: Yes Status: Acute Qualifiers: Heart failure type: diastolic Heart failure chronicity: acute Qualified Code(s): I50.31 - Acute diastolic (congestive) heart failure (2) HTN (hypertension) Current Visit: Yes Status: Chronic Qualifiers: Hypertension type: essential hypertension Qualified Code(s): I10 - Essential (primary) hypertension (3) Morbid obesity Current Visit: No Status: Chronic Brief History of Present Illness: This is a 67-year-old female with significant past medical history of high blood pressure and morbid obesity who presented to the ED complaining of having bilateral lower extremity edema. Patient stated that she recently went to her cardiology's office this morning and was told that she needs to come to the hospital to be admitted for CHF exacerbation due to bilateral lower extremity edema. Patient stated that she has also been having some shortness of breath for past couple of weeks which has gotten progressively worse and has been unable to lay flat at night time. Patient has been sleeping on a recliner and has been having difficulty walking without getting short of breath for couple of steps. Patient also states that she has noted her leg swelling has gotten worse over the past month and she is unable to bear weight on it due to pain due to the swelling. Patient denies having any fever chills nausea vomiting abdominal pain or any other associated symptoms at this time. In the ER patient was seen and evaluated. Lab work and imaging was done. Patient's lab work was consistent with elevated BNP along with physical examination that was consistent with CHF exacerbation and thus patient was referred for admission. Hospital Course: Overall during the hospital stay patient remained stable Patient was initially admitted to the hospital for CHF exacerbation. Was started on IV Lasix while here in the hospital. Patient had a over 7 lb weight loss the 1st 24 hr while she was here in the hospital. Cardiology was consulted as well here in the hospital who recommended the patient be started on losartan along with metoprolol 50 that she takes at home. Patient's clonidine along with Raymon inhibitor were held due to acute CHF exacerbation. Patient had marked improvement in her symptoms and thus she was switched over to oral Lasix while here in the hospital. Patient was also restarted back on clonidine as patient's blood pressure was hard to control the patient was the here in the hospital. Once patient's blood pressure stabilized and patient no longer had shortness of breath and dyspnea did have marked improvement in her swelling as well patient was then discharged home under stable condition.. Was educated extensively on sodium restriction along with fluid restriction. Was asked to follow up with cardiology as well. Patient demonstrate understanding and thus was discharged home under stable condition. Vital Signs/Physical Exam: Temp Pulse Resp BP Pulse Ox 98.7 F 68 16 140/82 92 08/03/18 08:00 08/03/18 09:23 08/03/18 08:00 08/03/18 09:23 08/03/18 08:00 General: Alert, In no apparent distress HEENT: Atraumatic, PERRLA, EOMI Neck: Supple, JVD not distended Respiratory: Clear to auscultation bilaterally, Normal air movement Cardiovascular: Regular rate/rhythm, Normal S1 S2 Gastrointestinal: Normal bowel sounds, No tenderness Musculoskeletal: No tenderness Integumentary: No rashes Neurological: Normal speech, Normal tone, Normal affect Lymphatics: No axilla or inguinal lymphadenopathy Laboratory Data at Discharge: WBC 5.7 K/uL (4.3-10.9) 08/03/18 06:04 Hgb 14.3 g/dL (12.0-15.0) 08/03/18 06:04 Hct 44.2 % (36.0-45.0) 08/03/18 06:04 Plt Count 186 K/uL (152-406) 08/03/18 06:04 PT 12.5 SECONDS (9.5-12.5) 07/31/18 14:30 INR 1.06 07/31/18 14:30 Sodium 139 mmol/L (136-145) 08/03/18 06:04 Potassium 3.5 mmol/L (3.5-5.1) 08/03/18 06:04 BUN 18 mg/dL (7-18) 08/03/18 06:04 Creatinine 0.74 mg/dL (0.55-1.3) 08/03/18 06:04 Glucose 103 mg/dL (74-106) 08/03/18 06:04 Phosphorus 3.0 mg/dL (2.5-4.9) 08/01/18 05:40 Magnesium 1.9 mg/dL (1.8-2.4) 07/31/18 14:30 Total Bilirubin 0.4 mg/dL (0.2-1.0) 08/03/18 06:04 AST 20 U/L (15-37) 08/03/18 06:04 ALT 29 U/L (12-78) 08/03/18 06:04 Alkaline Phosphatase 85 U/L (45-117) 08/03/18 06:04 Lipase 111 U/L (73-393) 07/31/18 14:30 Home Medications: Metoprolol Tartrate [Lopressor] 100 mg PO BID 07/31/18 Furosemide [Lasix*] 40 mg PO BIDL #60 tab 08/03/18 Valsartan [Diovan] 160 mg PO BID #60 tablet 08/03/18 cloNIDine HCl [Catapres*] 0.1 mg PO BID #60 tab 08/03/18 New Medications: cloNIDine HCl [Catapres*] 0.1 mg PO BID #60 tab Furosemide [Lasix*] 40 mg PO BIDL #60 tab Valsartan [Diovan] 160 mg PO BID #60 tablet Patient Discharge Instructions: Please f.u with PCP and Cardiology in 1 to 2 week post discharge. New medication. Lasix 40mg BID. Valsartan 160mg BID. Change Medication. Clonidine 0.1mg BID. . Stop Medication. Accupril. Cardizem Diet: Regular Activity: Ad terell Followup: Pedro Paniagua MD [ACTIVE - CAN ADMIT] - 1-2 Weeks (follow up in two weeks)
[2018-08-03 12:23] VITALS: BP 176/69; TEMP 98.1
--- NOTE | 2018-08-03 17:02 | PN ---
Date of Progress Note: 08/03/2018 Subjective: Ms. Shields has been in the hospital for approximately 72 hours for acute diastolic conges tive heart failure. She has a normal ejection fraction of 55% by recent echo. She has done very wel l from a CHF standpoint. She has diuresed well, lost weight, not really having any problem with shor tness of breath. Her main issue remains hypertension, nausea and headache probably secondary to the hypertension. The case was discussed with her primary care physician yesterday. We may have to put her back on clonidine, in addition to a beta-hector, REGINE inhibitor and a diuretic. I think we shoul d avoid the Cardizem that she has been taking in the past. She can go home whenever it is okay with her primary care physician. I will see her in the office as an outpatient. I think she needs to hav e an outpatient stress test. LALI/TRAVIS Voice ID: [id number] Report ID: [id number]
== END 2018-08-03 14:05 | disposition home or self-care (01) | DRG 291 ==
LOC: ER 13:53 → OBSVTOIN 14:45 → INTOOBSV 14:45 → ERHOLD 14:45 → 4TH 15:58 → OBSVTOIN 08-01 11:10
PROVIDERS: ADMIT Family Medicine; ATTEND Family Medicine
DX: I11.0 Hypertensive heart disease with heart failure (principal); I50.21 Acute systolic (congestive) heart failure; E66.01 Morbid (severe) obesity due to excess calories; F41.9 Anxiety disorder, unspecified; R00.1 Bradycardia, unspecified; Z68.35 Body mass index [BMI] 35.0-35.9, adult; Z87.891 Personal history of nicotine dependence
CPT/HCPCS: 36415; 71045; 80048; 80053; 80076; 81003; 82805; 82962; 83690; 83735; 83880; 84100; 84132; 84484; 85025; 85610; 87086; 87088; 93005; 93306; 93970; 96374; 97116; 97163; 97530; 99285; G0378; J0360; J1650; J1940; J2405